=== PATIENT | male | born 1955 | race Caucasian/White ===

== ENCOUNTER 2016-05-11 09:43 | Day surgery (SDC) | payer OTHER ==
[2016-05-11 10:43] VITALS: BMI 26.4
[2016-05-11] MEDS ORDERED: PROPOFOL 20 ML ONE ×2 (11:25)
[2016-05-11 11:56] VITALS: TEMP 97.6
[2016-05-11 13:08] VITALS: BP 137/88; PULSE 73
--- NOTE | 2016-05-12 12:38 | PATH ---
Surgical Pathology Report Patient Name: TARA BENSON [facility]. Rec. #: [id number] /Age/Gender: 1955 (Age: 60) / M Account: [id number] Location: U-ENDOSCOPY Taken: 05/11/2016 Received: 05/11/2016 Reported: 05/12/2016 Physicians: Adrian Armstrong M.D. Specimen(s) Received A: BX DUODENUM B: BX EROSIONS DISTAL ANTRUM C: BX BODY Clinical History Epigastric pain Final Diagnosis A. DUODENUM, BIOPSY: DUODENAL MUCOSA WITH NO PATHOLOGIC CHANGES. NO HISTOLOGIC EVIDENCE OF GLUTEN SENSITIVE ENTEROPATHY (CELIAC SPRUE) IDENTIFIED. B. STOMACH, DISTAL ANTRUM, BIOPSY: MODERATE CHRONIC ACTIVE GASTRITIS WITH REACTIVE GASTROPATHY. IMMUNOSTAIN FOR H. PYLORI IS POSITIVE (MODERATE TO MANY ORGANISMS). C. STOMACH, BODY, BIOPSY: MODERATE CHRONIC GASTRITIS. IMMUNOSTAIN FOR H. PYLORI IS POSITIVE (FEW TO MODERATE NUMBERS OF ORGANISMS). Electronically Signed Esdras Fay M.D. Gross Description A. Received in formalin, labeled "biopsy duodenum" are 2 chery, irregular portions of soft tissue measuring 0.3 and 0.4 cm. in greatest dimension. The specimens are submitted in toto in one cassette. B. Received in formalin, labeled "biopsy erosions in distal antrum" are 3 chery, irregular portions of soft tissue ranging from less than 0.1-0.2 cm. in greatest dimension. The specimens are submitted in toto in one cassette. C. Received in formalin, labeled "biopsy body" are 2 chery, irregular portions of soft tissue measuring 0.2 and 0.6 cm. in greatest dimension. The specimens are submitted in toto in one cassette. 05/11/201605/11/2016
== END 2016-05-11 12:30 | disposition home or self-care (01) ==
LOC: JASU-ENDO 09:43
PROVIDERS: ATTEND Internal Medicine Gastroenterology
PROC: 0DB68ZX Excision of Stomach, Via Natural or Artificial Opening Endoscopic, Diagnostic (ICD-10-PCS; 2016-05-11)
PROC: 0DB98ZX Excision of Duodenum, Via Natural or Artificial Opening Endoscopic, Diagnostic (ICD-10-PCS; principal; 2016-05-11 10:30)
DX: K25.9 Gastric ulcer, unspecified as acute or chronic, without hemorrhage or perforation (principal)
CPT/HCPCS: 88305-TC; 88342-TC

== ENCOUNTER 2020-02-20 10:32 | Emergency (ER) | payer OTHER | END 2020-02-20 11:40 | disposition home or self-care (01) | LOC: JVIRT 10:32 | DX: Z03.818 Encounter for observation for suspected exposure to other biological agents ruled out (principal) | CPT/HCPCS: C9803; Q3014-GT; U0003 ==

== ENCOUNTER 2020-08-25 00:25 | Emergency (ER) | payer OTHER ==
[2020-08-25 01:10] VITALS: TEMP 98.2; BMI 28.0
[2020-08-25] MEDS ORDERED: SODIUM CHLORIDE 1,000 ML IV STA (01:41)
[2020-08-25 02:13] LABS: BASO % 0.6 % (0-2.0); EOS % 0.6 % (0-4.5); HEMATOCRIT 41.8 % (35.4-49); HEMOGLOBIN 14.6 GM/dL (11.7-16.9); LYMPH % 14.7 % (8-40); MCH 31.6 pg (25.7-33.7); MEAN CELL VOLUME 90.1 fl (80-96); MEAN PLT VOLUME 8.1 fl (7.5-11.1); MONO % 6.5 % (3.8-10.2); NEUT % 77.6 % (42.8-82.8); PLATELET COUNT 379 K/MM3 (134-434); RBC 4.64 M/mm3 (4.00-5.60); RDW 14.1 % (11.9-15.9); WHITE BLOOD COUNT 8.8 K/mm3 (4.0-10.0)
[2020-08-25] MEDS ORDERED: MECLIZINE HCL 25 MG TABLET (FP) PO ONE (02:16)
[2020-08-25 02:32] LABS: CHLORIDE 105 mmol/L (98-107); SODIUM 138 mmol/L (136-145)
[2020-08-25 02:34] LABS: BLOOD UREA NITROGEN 16.3 mg/dL (7-18); CALCIUM 8.8 mg/dL (8.5-10.1)
[2020-08-25 02:35] LABS: ALBUMIN 3.6 g/dl (3.4-5.0); ANION GAP 7 MMOL/L (8-16); CO2 27 mmol/L (21-32); GLUCOSE,RANDOM 124 mg/dL (74-106)
[2020-08-25 02:38] LABS: SGOT/AST 17 U/L (15-37); SGPT/ALT 30 U/L (13-61)
[2020-08-25 02:39] LABS: BILIRUBIN,TOTAL 0.2 mg/dL (0.2-1)
[2020-08-25 02:40] LABS: ALK PHOS 69 U/L (45-117)
[2020-08-25 03:44] VITALS: BP 143/75; PULSE 80
== END 2020-08-25 03:44 | disposition home or self-care (01) ==
LOC: JER 00:25
PROC: 3E0337Z Introduction of Electrolytic and Water Balance Substance into Peripheral Vein, Percutaneous Approach (ICD-10-PCS; principal; 2020-08-25)
DX: R42 Dizziness and giddiness (principal)
CPT/HCPCS: 36415; 71045-TC-FY; 80053; 82550; 84484; 85025; 93005; 93010; 99284-25